=== PATIENT | female | born 1995 | race Caucasian/White ===

== ENCOUNTER 2018-11-11 01:33 | Emergency (ER) | payer MEDICAID ==
[2018-11-11] MEDS ORDERED: Ondansetron 4 MG/2 ML SDV IV ONE (01:49)
[2018-11-11] MEDS ORDERED: Ketorolac 30 MG/ML SDV IVPUSH ONE (01:50)
[2018-11-11] MEDS ORDERED: Sodium Chloride 0.9% 1,000 ML IV SCH (02:00)
[2018-11-11] MEDS ORDERED: HYDROmorphone 1 MG/ML Syringe IVPUSH ONE ×2 (02:22→02:43)
[2018-11-11 02:26] LABS: ANION GAP 13.6; CHLORIDE,CL 105 mmol/L (101-111); SODIUM,NA 136 mmol/L (135-145)
[2018-11-11] MEDS ORDERED: Iopamidol 612 MG/ML 75 ML Bottle IVPUSH ONE (03:26)
[2018-11-11] MEDS ORDERED: Metoclopramide 10 MG/2 ML SDV IVPUSH ONE (03:34)
--- NOTE | 2018-11-11 03:34 | EDM.PDOC ---
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 Hx endometriosis, exploratory lap 10/16/18. Concerned now spread to bowel severe pain past week with bowel movements. 2 today first "normal and 2nd hard. Had left over oxycodone from surgery took one at be, threw up after. Has only been able to eat limited food past month, rice and few vegies, tried couple bites of steak tonight and threw that up. Rates pain 10/10. No fever or chills. 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 Has IUD. Lower Abdomen Pain Score (Numeric/FACES): 10 - Related Data Allergies Allergy/AdvReac Type Severity Reaction Status Date / Time No Known Allergies Allergy Verified 11/11/18 02:30 Home Meds: Home Meds Levonorgestrel [Mirena] 1 each IY 11/11/18 [History] Magnesium 30 mg PO DAILY 11/11/18 [History] Zinc Gluconate [Zinc] 30 mg PO DAILY 11/11/18 [History] oxyCODONE HCl/Acetaminophen [Percocet 10-325 mg Tablet] 1 each PO Q6HR PRN 11/11 [History] Past Medical History Gastrointestinal History: Reports: Chronic Constipation, Other (See Below) Other Gastrointestinal History: hernia as infant Genitourinary History: Reports: UTI, Recurrent QUALITY COORDINATOR History: Reports: Endometriosis Musculoskeletal History: Reports: Neck Pain, Chronic Neurological History: Reports: Migraines Psychiatric History: Reports: Depression - Past Surgical History HEENT Surgical History: Reports: Myringotomy w Tube(s) GI Surgical History: Reports: Hernia Repair/Other Female Surgical History: Reports: Other (See Below) Other Female Surgeries/Procedures: surgery 10/16/[address] Hernandez to dx endometriosis Oncologic Surgical History: Reports: Other (See Below) Social & Family History - Family History Family Medical History: Noncontributory - Tobacco Use Smoking Status *Q: Never Smoker Second Hand Smoke Exposure: No - Caffeine Use Caffeine Use: Reports: Soda - Recreational Drug Use Recreational Drug Use: No - Sexual History Sexual History: Reports: Sexually Active - Living Situation & Occupation Living situation: Reports: with Family Occupation: Employed ED ROS GENERAL - Review of Systems Review Of Systems: ROS reveals no pertinent complaints other than HPI. ED EXAM, GI/ABD - Physical Exam Exam: See Below Exam Limited By: No Limitations General Appearance: Alert, Moderate Distress Eyes: Bilateral: EOMI Ears: Normal External Exam Nose: Normal Inspection Throat/Mouth: Normal Inspection Head: Atraumatic, Normocephalic Neck: Normal Inspection Respiratory/Chest: No Respiratory Distress, Lungs Clear, Normal Breath Sounds Cardiovascular: Normal Peripheral Pulses, Regular Rate, Rhythm GI/Abdominal Exam: Guarding, Tender (lower ). No: Distended Back Exam: Normal Inspection, Full Range of Motion Extremities: Normal Inspection, Normal Range of Motion Neurological: Alert, Oriented, CN II-XII Intact, Normal Cognition Psychiatric: Normal Affect, Normal Mood, Tearful Skin Exam: Warm, Dry, Intact, Normal Color Course - Vital Signs Last Recorded V/S: Last Vital Signs Temp 97.9 F 11/11/18 05:07 Pulse 75 11/11/18 05:07 Resp 17 11/11/18 05:07 BP 108/62 11/11/18 05:07 Pulse Ox 100 11/11/18 05:07 - Orders/Labs/Meds Orders: Active Orders 24 hr Category Date Time Status EKG Documentation Completion [RC] URGENT Care 11/11/18 06:05 Inactive Sodium Chloride 0.9% [Normal Saline] 1,000 ml Med 11/11/18 02:00 Active IV ASDIRECTED Medication Orders Sodium Chloride (Normal Saline) 1,000 mls @ 999 mls/hr IV ASDIRECTED HERON Last Admin: 11/11/18 01:54 Dose: 999 mls/hr Labs: Laboratory Tests 11/11/18 11/11/18 11/11/18 Range/Units 01:50 01:50 01:50 WBC 5.3 (5.0-10.0) 10^3/uL RBC 4.54 (4.2-5.4) 10^6/uL Hgb 13.8 (12.0-16.0) g/dL Hct 39.0 (37.0-47.0) % MCV 85.9 D (80-100) fL MCH 30.4 (27.0-34.0) pg MCHC 35.4 H (33.0-35.0) g/dL Plt Count 228 (150-450) 10^3/uL Neut % (Auto) 22.3 L (42.2-75.2) % Lymph % (Auto) 65.0 H (20.5-50.1) % [place] % (Auto) 10.4 H (2-8) % Eos % (Auto) 2.1 (1.0-3.0) % Baso % (Auto) 0.2 (0.0-1.0) % Sodium 136 (135-145) mmol/L Potassium 4.6 (3.6-5.0) mmol/L Chloride 105 (101-111) mmol/L Carbon Dioxide 22.0 (21.0-31.0) mmol/L Anion Gap 13.6 BUN 18 (7-18) mg/dL Creatinine 0.8 (0.6-1.3) mg/dL Est Cr Clr Drug Dosing TNP Estimated GFR (MDRD) > 60 BUN/Creatinine Ratio 22.50 Glucose 83 (74-105) mg/dL Lactic Acid 1.0 (0.5-2.2) mmol/L Calcium 9.0 (8.4-10.2) mg/dl Total Bilirubin 1.0 (0.2-1.0) mg/dL AST 28 (10-42) IU/L ALT 18 (10-60) IU/L Alkaline Phosphatase 46 (42-121) IU/L Troponin I (0.00-0.02) ng/ml Total Protein 7.7 (6.7-8.2) g/dl Albumin 4.4 (3.2-5.5) g/dl Globulin 3.3 Albumin/Globulin Ratio 1.33 Urine Color (YELLOW) Urine Appearance (CLEAR) Urine pH (5.0-9.0) Ur Specific [place] (1.005-1.030) Urine Protein (NEGATIVE) Urine Glucose (UA) (NEGATIVE) Urine Ketones (NEGATIVE) Urine Occult Blood (NEGATIVE) Urine Nitrite (NEGATIVE) Urine Bilirubin (NEGATIVE) Urine Urobilinogen (0.2-1.0) mg/dL Ur Leukocyte Esterase (NEGATIVE) Urine RBC /HPF Urine WBC (0-5/HPF) /HPF Ur Epithelial Cells (NOT SEEN) /HPF Amorphous Sediment (NOT SEEN) /HPF Urine Bacteria (0-FEW/HPF) /HPF Urine HCG, Qual 11/11/18 11/11/18 11/11/18 Range/Units 01:50 02:23 02:23 WBC (5.0-10.0) 10^3/uL RBC (4.2-5.4) 10^6/uL Hgb (12.0-16.0) g/dL Hct (37.0-47.0) % MCV (80-100) fL MCH (27.0-34.0) pg MCHC (33.0-35.0) g/dL Plt Count (150-450) 10^3/uL Neut % (Auto) (42.2-75.2) % Lymph % (Auto) (20.5-50.1) % [place] % (Auto) (2-8) % Eos % (Auto) (1.0-3.0) % Baso % (Auto) (0.0-1.0) % Sodium (135-145) mmol/L Potassium (3.6-5.0) mmol/L Chloride (101-111) mmol/L Carbon Dioxide (21.0-31.0) mmol/L Anion Gap BUN (7-18) mg/dL Creatinine (0.6-1.3) mg/dL Est Cr Clr Drug Dosing Estimated GFR (MDRD) BUN/Creatinine Ratio Glucose (74-105) mg/dL Lactic Acid (0.5-2.2) mmol/L Calcium (8.4-10.2) mg/dl Total Bilirubin (0.2-1.0) mg/dL AST (10-42) IU/L ALT (10-60) IU/L Alkaline Phosphatase (42-121) IU/L Troponin I < 0.02 (0.00-0.02) ng/ml Total Protein (6.7-8.2) g/dl Albumin (3.2-5.5) g/dl Globulin Albumin/Globulin Ratio Urine Color Yellow (YELLOW) Urine Appearance Cloudy (CLEAR) Urine pH 8.5 (5.0-9.0) Ur Specific [place] 1.015 (1.005-1.030) Urine Protein Negative (NEGATIVE) Urine Glucose (UA) Negative (NEGATIVE) Urine Ketones Negative (NEGATIVE) Urine Occult Blood Negative (NEGATIVE) Urine Nitrite Negative (NEGATIVE) Urine Bilirubin Negative (NEGATIVE) Urine Urobilinogen 0.2 (0.2-1.0) mg/dL Ur Leukocyte Esterase Trace H (NEGATIVE) Urine RBC Not seen /HPF Urine WBC 0-5 (0-5/HPF) /HPF Ur Epithelial Cells Moderate H (NOT SEEN) /HPF Amorphous Sediment Moderate H (NOT SEEN) /HPF Urine Bacteria Moderate H (0-FEW/HPF) /HPF Urine HCG, Qual Negative Meds: Medications Generic Name Dose Route Start Last Admin Trade Name Freq PRN Reason Stop Dose Admin Sodium Chloride 1,000 mls @ 999 mls/hr 11/11/18 02:00 11/11/18 01:54 Normal Saline IV 999 mls/hr ASDIRECTED HERON Administration Discontinued Medications Generic Name Dose Route Start Last Admin Trade Name Freq PRN Reason Stop Dose Admin Famotidine 20 mg 11/11/18 05:06 11/11/18 05:13 Pepcid IVPUSH 11/11/18 05:07 20 mg ONETIME ONE Administration Fentanyl 50 mcg 11/11/18 03:35 11/11/18 03:43 Sublimaze IVPUSH 11/11/18 03:36 50 mcg ONETIME ONE Administration Hydromorphone HCl 1 mg 11/11/18 02:22 11/11/18 02:27 Dilaudid IVPUSH 11/11/18 02:23 1 mg ONETIME ONE Administration Hydromorphone HCl 1 mg 11/11/18 02:43 11/11/18 02:52 Dilaudid IVPUSH 11/11/18 02:44 1 mg ONETIME ONE Administration Iopamidol 75 ml 11/11/18 03:26 11/11/18 04:08 Isovue-300 (61%) IVPUSH 11/11/18 03:27 75 ml ONETIME ONE Administration Ketorolac Tromethamine 30 mg 11/11/18 01:50 11/11/18 01:55 Toradol IVPUSH 11/11/18 01:51 30 mg ONETIME ONE Administration Metoclopramide HCl 10 mg 11/11/18 03:34 11/11/18 03:40 Reglan IVPUSH 11/11/18 03:35 10 mg ONETIME ONE Administration Ondansetron HCl 4 mg 11/11/18 01:49 11/11/18 01:55 Zofran IV 11/11/18 01:50 4 mg ONETIME ONE Administration - Radiology Interpretation Free Text/Narrative:: [facility] Final Radiology Report Call: [phone] assistance Online chat: [email or web address] Name: ELIZABETH BALLESTEROS Age: 23Years F Date: 11/11/2018 SSN: -- : [id number] Study: CT ABDOMEN/PELVIS W Requesting Physician: ANGELI CADENA Images: 1 Addl Studies: Provided Clinical History: Contrast: With Contrast Medium: Iso 300 Contrast Amount: 75 mL Contrast Method: R Hand 18g Page 1 of 2 EXAM: CT Abdomen and Pelvis With Contrast EXAM DATE/TIME: 11/11/2018 3:55 AM CLINICAL HISTORY: 23 years old, female; Abdominal pain and other: HX of endometriosis, HX of bladder and kidney infections; Prior surgery; Surgery date: <1 month; Surgery type: PT had recent bx done of uterus - TECHNIQUE: Imaging protocol: Axial computed tomography images of the abdomen and pelvis with intravenous contrast. Coronal and sagittal reformatted images were created and reviewed. Radiation optimization: All CT scans at this facility use at least one of these dose optimization techniques: automated exposure control; mA and/or kV adjustment per patient size (includes targeted exams where dose is matched to clinical indication); or iterative reconstruction. Contrast material: ISO 300; Contrast volume: 75 ml; Contrast route: R HAND 18G; COMPARISON: No relevant prior studies available. FINDINGS: ABDOMEN: Liver: No suspicious lesions. Gallbladder and bile ducts: No acute or concerning findings. Pancreas: Unremarkable. No ductal dilation. Spleen: No suspicious lesions. Adrenals: Unremarkalbe. No suspicious mass. ELIZABETH BALLESTEROS | Final Radiology Report CONFIDENTIALITY STATEMENT This report is intended only for use by the referring physician, and only in accordance with law. If you received this in error, call [phone]. Page 2 of 2 Kidneys and ureters: Unremarkable. No hydro. No suspicious lesions. Stomach and bowel: Unremarkable. No obstruction or inflammatory changes. Appendix: Normal appendix. PELVIS: Bladder: Unremarkable as visualized. Reproductive: 3.6 cm right adnexal cyst. 2.4 cm left adnexal cyst. IUD. ABDOMEN and PELVIS: Intraperitoneal space: No free air. No significant fluid collection. Bones/joints: No acute fracture. No dislocation. Soft tissues: Unremarkable. Vasculature: Unremarkable. No acute findings Lymph nodes: Unremarkable. IMPRESSION: Bilateral adnexal cysts. 6 week followup pelvic ultrasound suggested. Thank you for allowing us to participate in the care of your patient. Dictated and Authenticated by: Anuj Baumann MD 11/11/2018 5:27 AM Central Time ([place] & [place] Departure - Departure Time of Disposition: 05:35 Disposition: Home, Self-Care 01 Condition: Good Clinical Impression: Hx of endometriosis Abdominal pain Qualifiers: Abdominal location: lower abdomen, unspecified Qualified Code(s): R10.30 - Lower abdominal pain, unspecified Ovarian cyst Qualifiers: Laterality: bilateral Qualified Code(s): N83.201 - Unspecified ovarian cyst, right side - Discharge Information *PRESCRIPTION DRUG MONITORING PROGRAM REVIEWED*: No *COPY OF PRESCRIPTION DRUG MONITORING REPORT IN PATIENT ANIKET: No Instructions: Ovarian Cyst, [id number] Forms: ED Department Discharge Additional Instructions: Ibuprofen 600mg every 6 hours as needed for discomfort zofran 4mg ODT one every 6 hours as needed for nausea omeprozole 20mg one daily on empty stomach miralax one capful in 8 ounces liquid daily follow up with primary care this week - My Orders Last 24 Hours: My Active Orders 11/11/18 02:00 Sodium Chloride 0.9% [Normal Saline] 1,000 ml IV ASDIRECTED 11/11/18 06:05 EKG Documentation Completion [RC] URGENT - Assessment/Plan Last 24 Hours: My Active Orders 11/11/18 02:00 Sodium Chloride 0.9% [Normal Saline] 1,000 ml IV ASDIRECTED 11/11/18 06:05 EKG Documentation Completion [RC] URGENT
[2018-11-11] MEDS ORDERED: fentaNYL 100 MCG/2 ML SDV IVPUSH ONE (03:35)
[2018-11-11] MEDS ORDERED: Famotidine 20 MG/2 ML SDV IVPUSH ONE (05:06)
[2018-11-11 05:08] VITALS: BP 108/62
== END 2018-11-11 05:45 | disposition home or self-care (01) ==
LOC: DL.ED 01:33
DX: N83.201 Unspecified ovarian cyst, right side (principal); Z79.899 Other long term (current) drug therapy; Z87.42 Personal history of other diseases of the female genital tract
CPT/HCPCS: 36415; 74177; 80053; 81001; 81025; 83605; 84484; 85025; 96361; 96374; 96375; 99284-25; J1170; J1885; J2405; J2765; J3010; J3490; J7030; Q9967

== ENCOUNTER 2018-11-24 03:11 | Emergency (ER) | payer MEDICAID ==
[2018-11-24] MEDS ORDERED: Promethazine 25 MG/ML SDV IM ONE (03:47)
--- NOTE | 2018-11-24 03:47 | EDM.PDOC ---
ED HPI GENERAL MEDICAL PROBLEM - General Chief Complaint: Abdominal Pain Stated Complaint: in a lot of pain Time Seen by Provider: 11/24/18 03:35 Source of Information: Reports: Patient History Limitations: Reports: No Limitations - History of Present Illness INITIAL COMMENTS - FREE TEXT/NARRATIVE: This 23 yo female patient reports to the ED with increased lower abdominal pain , lower back pain and feeling like she needs to have a bowel movement. The patient was seen in the ED on 11/11/18 in the ED. During that visit, the patient received pain medications, nausea medications and an abdominal CT. The patient reports she has a follow-up appointment at the [facility] today, but could not deal with the pain this evening. The patient reports she has been previously diagnosed with endometriosis and now believes it may have spread to her bowels. The patient reports she has been alternating between diarrhea and constipation over the past weeks. The patient reports she has an appointment with a specialist in [place] on 12/11/18. The patient reports she did take her Oxycodone and Zofran with no symptom relief. Duration: Day(s):, Constant, Getting Worse Location: Reports: Abdomen Quality: Reports: Ache, Sharp, Stabbing Severity: Severe Improves with: Reports: None Worsens with: Reports: None Context: Reports: Other Associated Symptoms: Reports: Nausea/Vomiting Lower Abdomen Pain Score (Numeric/FACES): 9 Lower Back Pain Score (Numeric/FACES): 4 - Related Data Allergies Allergy/AdvReac Type Severity Reaction Status Date / Time No Known Allergies Allergy Verified 11/24/18 04:14 Home Meds: Home Meds Levonorgestrel [Mirena] 1 each IY 11/11/18 [History] Magnesium 30 mg PO DAILY 11/11/18 [History] Zinc Gluconate [Zinc] 30 mg PO DAILY 11/11/18 [History] oxyCODONE HCl/Acetaminophen [Percocet 10-325 mg Tablet] 1 each PO Q6HR PRN 11/11 [History] Past Medical History Gastrointestinal History: Reports: Chronic Constipation, Other (See Below) Other Gastrointestinal History: hernia as Genitourinary History: Reports: UTI, Recurrent 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 Musculoskeletal History: Reports: Neck Pain, Chronic Neurological History: Reports: Migraines Psychiatric History: Reports: Depression - Past Surgical History HEENT Surgical History: Reports: Myringotomy w Tube(s) GI Surgical History: Reports: Hernia Repair/Other Female Surgical History: Reports: Other (See Below) Other Female Surgeries/Procedures: surgery 10/16/[address] Hernandez to dx endometriosis Oncologic Surgical History: Reports: Other (See Below) Social & Family History - Family History Family Medical History: Noncontributory - Tobacco Use Smoking Status *Q: Never Smoker Second Hand Smoke Exposure: No - Caffeine Use Caffeine Use: Reports: Soda - Recreational Drug Use Recreational Drug Use: No - Sexual History Sexual History: Reports: Sexually Active - Living Situation & Occupation Living situation: Reports: with Family Occupation: Employed ED ROS GENERAL - Review of Systems Review Of Systems: ROS reveals no pertinent complaints other than HPI. ED EXAM, GI/ABD - Physical Exam Exam: See Below Exam Limited By: No Limitations General Appearance: Alert, WD/WN, Moderate Distress Eyes: Bilateral: EOMI, Erythema Ears: Normal External Exam, Normal Canal, Hearing Grossly Normal, Normal TMs Nose: Normal Inspection, Normal Mucosa, No Blood Throat/Mouth: Normal Inspection, Normal Lips, Normal Teeth, Normal Gums, Normal Oropharynx, Normal Voice, No Airway Compromise Head: Atraumatic, Normocephalic Neck: Normal Inspection, Supple, Non-Tender, Full Range of Motion Respiratory/Chest: No Respiratory Distress, Lungs Clear, Normal Breath Sounds, No Accessory Muscle Use, Chest Non-Tender Cardiovascular: Normal Peripheral Pulses, Regular Rate, Rhythm, No Edema, No Gallop, No JVD, No Murmur, No Rub GI/Abdominal Exam: Guarding (lower abdomen), Tender (Female) Exam: Deferred Rectal (Female) Exam: Deferred Back Exam: Normal Inspection, Full Range of Motion, NT Extremities: Normal Inspection, Normal Range of Motion, Non-Tender, Normal Capillary Refill, No Pedal Edema Neurological: Alert, Oriented, CN II-XII Intact, Normal Cognition, Normal Gait, Normal Reflexes, No Motor/Sensory Deficits Psychiatric: Depressed Mood, Flat Affect, Tearful Skin Exam: Warm, Dry, Intact, Normal Color, No Rash Lymphatic: No Adenopathy Course - Vital Signs Last Recorded V/S: Last Vital Signs Temp 36.3 C 11/24/18 03:24 Pulse 99 11/24/18 03:24 Resp 22 H 11/24/18 03:24 BP 107/42 L 07/02/19 03:24 Pulse Ox 96 11/24/18 03:24 - Orders/Labs/Meds Labs: Laboratory Tests 11/24/18 11/24/18 11/24/18 Range/Units 03:31 03:31 03:31 WBC (5.0-10.0) 10^3/uL RBC (4.2-5.4) 10^6/uL Hgb (12.0-16.0) g/dL Hct (37.0-47.0) % MCV (80-100) fL MCH (27.0-34.0) pg MCHC (33.0-35.0) g/dL Plt Count (150-450) 10^3/uL Neut % (Auto) (42.2-75.2) % Lymph % (Auto) (20.5-50.1) % [place] % (Auto) (2-8) % Eos % (Auto) (1.0-3.0) % Baso % (Auto) (0.0-1.0) % Add Manual Diff Neutrophils % (Manual) (42-75) % Lymphocytes % (Manual) (20-50) % Monocytes % (Manual) (2-8) % Eosinophils % (Manual) (1-3) % Basophils % (Manual) Sodium (135-145) mmol/L Potassium (3.6-5.0) mmol/L Chloride (101-111) mmol/L Carbon Dioxide (21.0-31.0) mmol/L Anion Gap BUN (7-18) mg/dL Creatinine (0.6-1.3) mg/dL Est Cr Clr Drug Dosing mL/min Estimated GFR (MDRD) BUN/Creatinine Ratio Glucose (74-105) mg/dL Calcium (8.4-10.2) mg/dl Total Bilirubin (0.2-1.0) mg/dL AST (10-42) IU/L ALT (10-60) IU/L Alkaline Phosphatase (42-121) IU/L Total Protein (6.7-8.2) g/dl Albumin (3.2-5.5) g/dl Globulin Albumin/Globulin Ratio Urine Color Yellow (YELLOW) Urine Appearance Slightly cloudy (CLEAR) Urine pH 7.0 (5.0-9.0) Ur Specific [place] 1.020 (1.005-1.030) Urine Protein Negative (NEGATIVE) Urine Glucose (UA) Negative (NEGATIVE) Urine Ketones Negative (NEGATIVE) Urine Occult Blood Negative (NEGATIVE) Urine Nitrite Negative (NEGATIVE) Urine Bilirubin Negative (NEGATIVE) Urine Urobilinogen 0.2 (0.2-1.0) mg/dL Ur Leukocyte Esterase Negative (NEGATIVE) Urine HCG, Qual Negative Urine Opiates Screen Negative (NEGATIVE) Ur Oxycodone Screen Positive H (NEGATIVE) Urine Methadone Screen Negative (NEGATIVE) Ur Barbiturates Screen Negative (NEGATIVE) U Tricyclic Antidepress Negative (NEGATIVE) Ur Phencyclidine Scrn Negative (NEGATIVE) Ur Amphetamine Screen Negative (NEGATIVE) U Methamphetamines Scrn Negative (NEGATIVE) Urine MDMA Screen Negative (NEGATIVE) U Benzodiazepines Scrn Negative (NEGATIVE) Urine Cocaine Screen Negative (NEGATIVE) U Marijuana (THC) Screen Positive H (NEGATIVE) 11/24/18 11/24/18 Range/Units 03:36 03:36 WBC 4.5 L (5.0-10.0) 10^3/uL RBC 4.51 (4.2-5.4) 10^6/uL Hgb 13.7 (12.0-16.0) g/dL Hct 39.0 (37.0-47.0) % MCV 86.5 (80-100) fL MCH 30.4 (27.0-34.0) pg MCHC 35.1 H (33.0-35.0) g/dL Plt Count 182 (150-450) 10^3/uL Neut % (Auto) 29.8 L (42.2-75.2) % Lymph % (Auto) 60.3 H (20.5-50.1) % [place] % (Auto) 8.2 H (2-8) % Eos % (Auto) 1.5 (1.0-3.0) % Baso % (Auto) 0.2 (0.0-1.0) % Add Manual Diff Yes Neutrophils % (Manual) 23 L (42-75) % Lymphocytes % (Manual) 61 H (20-50) % Monocytes % (Manual) 12 H (2-8) % Eosinophils % (Manual) 3 (1-3) % Basophils % (Manual) 1.0 Sodium 137 (135-145) mmol/L Potassium 3.7 (3.6-5.0) mmol/L Chloride 108 (101-111) mmol/L Carbon Dioxide 20.0 L (21.0-31.0) mmol/L Anion Gap 12.7 BUN 12 (7-18) mg/dL Creatinine 0.7 (0.6-1.3) mg/dL Est Cr Clr Drug Dosing 122.59 mL/min Estimated GFR (MDRD) > 60 BUN/Creatinine Ratio 17.14 Glucose 96 (74-105) mg/dL Calcium 9.1 (8.4-10.2) mg/dl Total Bilirubin 0.6 (0.2-1.0) mg/dL AST 21 (10-42) IU/L ALT 20 (10-60) IU/L Alkaline Phosphatase 40 L (42-121) IU/L Total Protein 7.1 (6.7-8.2) g/dl Albumin 4.2 (3.2-5.5) g/dl Globulin 2.9 Albumin/Globulin Ratio 1.45 Urine Color (YELLOW) Urine Appearance (CLEAR) Urine pH (5.0-9.0) Ur Specific [place] (1.005-1.030) Urine Protein (NEGATIVE) Urine Glucose (UA) (NEGATIVE) Urine Ketones (NEGATIVE) Urine Occult Blood (NEGATIVE) Urine Nitrite (NEGATIVE) Urine Bilirubin (NEGATIVE) Urine Urobilinogen (0.2-1.0) mg/dL Ur Leukocyte Esterase (NEGATIVE) Urine HCG, Qual Urine Opiates Screen (NEGATIVE) Ur Oxycodone Screen (NEGATIVE) Urine Methadone Screen (NEGATIVE) Ur Barbiturates Screen (NEGATIVE) U Tricyclic Antidepress (NEGATIVE) Ur Phencyclidine Scrn (NEGATIVE) Ur Amphetamine Screen (NEGATIVE) U Methamphetamines Scrn (NEGATIVE) Urine MDMA Screen (NEGATIVE) U Benzodiazepines Scrn (NEGATIVE) Urine Cocaine Screen (NEGATIVE) U Marijuana (THC) Screen (NEGATIVE) Meds: Medications Discontinued Medications Generic Name Dose Route Start Last Admin Trade Name Freq PRN Reason Stop Dose Admin Hydromorphone HCl 1 mg 11/24/18 04:35 Dilaudid IVPUSH 11/24/18 04:36 ONETIME ONE Ketorolac Tromethamine 30 mg 11/24/18 03:56 11/24/18 04:02 Toradol IVPUSH 11/24/18 03:57 30 mg ONETIME ONE Administration Promethazine HCl 25 mg 11/24/18 03:47 11/24/18 03:52 Phenergan IM 11/24/18 03:48 25 mg ONETIME ONE Administration Departure - Departure Time of Disposition: 04:36 Disposition: Home, Self-Care 01 Condition: Fair Clinical Impression: Hx of endometriosis Abdominal pain Qualifiers: Abdominal location: lower abdomen, unspecified Qualified Code(s): R10.30 - Lower abdominal pain, unspecified - Discharge Information *PRESCRIPTION DRUG MONITORING PROGRAM REVIEWED*: Yes *COPY OF PRESCRIPTION DRUG MONITORING REPORT IN PATIENT ANIKET: Yes Instructions: Abdominal Pain, Adult, [id number] Forms: ED Department Discharge Care Plan Goals: The patient was advised of the examination and lab results during the visit. The patient was given an injection of Phenergan, an IV dose of Toradol and an IV dose of Dilaudid while in the ED. The patient was encouraged to follow-up with her primary care facility today as previously planned and her specialist for continued management. If the patient has any additional symptoms or concerns , the patient should either return to the emergency department or visit her primary care facility.
[2018-11-24] MEDS ORDERED: Ketorolac 30 MG/ML SDV IVPUSH ONE (03:56)
[2018-11-24 04:03] LABS: ANION GAP 12.7; CHLORIDE,CL 108 mmol/L (101-111); SODIUM,NA 137 mmol/L (135-145)
[2018-11-24] MEDS ORDERED: HYDROmorphone 1 MG/ML Syringe IVPUSH ONE (04:35)
[2018-11-24 05:00] VITALS: BP 121/67
== END 2018-11-24 05:07 | disposition home or self-care (01) ==
LOC: DL.ED 03:11
DX: R10.30 Lower abdominal pain, unspecified (principal); M54.5 Low back pain; Z96.22 Myringotomy tube(s) status
CPT/HCPCS: 36415; 80053; 80305; 81003; 81025; 85025; 96372; 96374; 96375; 99284; J1170; J1885; J2550

== ENCOUNTER 2020-02-25 06:30 | Emergency (ER) | payer MEDICAID ==
[2020-02-25 06:48] VITALS: BP 114/65; PULSE 87
[2020-02-25] MEDS ORDERED: diphenhydrAMINE 50 MG/ML SDV IVPUSH ONE (07:02)
[2020-02-25] MEDS ORDERED: Metoclopramide 10 MG/2 ML SDV IVPUSH ONE (07:02)
[2020-02-25] MEDS ORDERED: Sodium Chloride 0.9% 1,000 ML IV ONE (07:02)
[2020-02-25] MEDS ORDERED: Sodium Chloride 0.9% 10 ML Syringe FLUSH PRN (07:02)
[2020-02-25 07:22] LABS: ANION GAP 12.6 mEq/L (7-13); CHLORIDE,CL 104 mmol/L (98-107); SODIUM,NA 138 mmol/L (136-145)
--- NOTE | 2020-02-25 07:45 | EDM.PDOC ---
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 Pt reports onset of frequent nausea since discovering that she was . For the past 5 to 6 days she reports frequent vomiting and has gotten to the point that she cannot keep down any food or water. Denies pain, contractions, vaginal bleeding, leak of fluids, or vaginal discharge. Denies fever, chills, diarrhea, or dysuria. Duration: Constant Location: Reports: Abdomen, Generalized Quality: Reports: Other (Denies pain) Severity: Severe Improves with: Reports: None Worsens with: Reports: Eating Associated Symptoms: Reports: No Other Symptoms Abdomen Pain Score (Numeric/FACES): 3 - Related Data Allergies Allergy/AdvReac Type Severity Reaction Status Date / Time No Known Allergies Allergy Verified 02/25/20 06:50 Home Meds: Home Meds Magnesium 30 mg PO DAILY 11/11/18 [History] Zinc Gluconate [Zinc] 30 mg PO DAILY 11/11/18 [History] levonorgestreL [Mirena] 1 each IY 11/11/18 [History] oxyCODONE HCl/Acetaminophen [Percocet 10-325 mg Tablet] 1 each PO Q6HR PRN 11/11/18 [History] Past Medical History Gastrointestinal History: Reports: Chronic Constipation, Other (See Below) Other Gastrointestinal History: hernia as Genitourinary History: Reports: UTI, Recurrent 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: Reports: Endometriosis : 1 Para: 0 LMP (Approximate): Musculoskeletal History: Reports: Neck Pain, Chronic Neurological History: Reports: Migraines Psychiatric History: Reports: Depression - Past Surgical History HEENT Surgical History: Reports: Myringotomy w Tube(s) GI Surgical History: Reports: Hernia Repair/Other Female Surgical History: Reports: Other (See Below) Other Female Surgeries/Procedures: surgery 10/16/[address] Hernandez to dx endometriosis Oncologic Surgical History: Reports: Other (See Below) Social & Family History - Family History Family Medical History: Noncontributory - Tobacco Use Smoking Status *Q: Never Smoker Second Hand Smoke Exposure: No - Caffeine Use Caffeine Use: Reports: Soda - Recreational Drug Use Recreational Drug Use: No - Sexual History Sexual History: Reports: Sexually Active - Living Situation & Occupation Living situation: Reports: with Family Occupation: Employed ED ROS GENERAL - Review of Systems Review Of Systems: Comprehensive ROS is negative, except as noted in HPI. ED EXAM - Physical Exam Exam: See Below Exam Limited By: No Limitations General Appearance: Alert, WD/WN, No Apparent Distress Eye Exam: Bilateral Eye: Normal Inspection (No scleral icterus) Nose: Normal Inspection, Normal Mucosa, No Blood Throat/Mouth: Normal Lips, Normal Teeth, Normal Gums, Normal Oropharynx, Normal Voice, No Airway Compromise, Other (Dry oral membranes) Head: Atraumatic, Normocephalic Neck: Normal Inspection, Supple, Non-Tender, Full Range of Motion Respiratory/Chest: No Respiratory Distress, Lungs Clear, Normal Breath Sounds, No Accessory Muscle Use, Chest Non-Tender Cardiovascular: Normal Peripheral Pulses, Regular Rate, Rhythm, No Edema, No Gallop, No JVD, No Murmur, No Rub GI/Abdominal Exam: Normal Bowel Sounds, Soft, Non-Tender, No Organomegaly, No Distention, No Abnormal Bruit, No Mass, Pelvis Stable Rectal Exam: Deferred (Female) Exam: Other (Deferred) Back Exam: Normal Inspection. No: CVA Tenderness (L), CVA Tenderness (R) Extremities: Normal Inspection, Normal Range of Motion, Non-Tender, Normal Capillary Refill, No Pedal Edema Neurological: Alert, Oriented, CN II-XII Intact, Normal Cognition, Normal Gait, No Motor/Sensory Deficits Psychiatric: Normal Affect, Normal Mood Skin Exam: Warm, Dry, Intact, Normal Color, No Rash Course - Vital Signs Last Recorded V/S: Last Vital Signs Temp 98 F 02/25/20 06:39 Pulse 87 02/25/20 06:39 Resp 19 02/25/20 06:39 BP 114/65 02/25/20 06:39 Pulse Ox 99 02/25/20 06:39 - Orders/Labs/Meds Orders: Active Orders 24 hr Category Date Time Status Peripheral IV Care [RC] . DIRECTED Care 02/25/20 07:02 Active CULTURE URINE [RM] Stat Lab 02/25/20 08:12 Received Sodium Chloride 0.9% [Saline Flush] Med 02/25/20 07:02 Active 10 ml FLUSH ASDIRECTED PRN Peripheral IV Insertion Adult [OM.PC] Stat Oth 02/25/20 07:02 Ordered Medication Orders Sodium Chloride (Saline Flush) 10 ml FLUSH ASDIRECTED PRN PRN Reason: Keep Vein Open Last Admin: 02/25/20 07:16 Dose: 10 ml Documented by: REED Labs: Laboratory Tests 02/25/20 02/25/20 02/25/20 Range/Units 06:32 06:32 08:12 WBC 6.4 (5.0-10.0) 10^3/uL RBC 4.23 (4.2-5.4) 10^6/uL Hgb 13.7 (12.0-16.0) g/dL Hct 38.9 (37.0-47.0) % MCV 92.0 D (80-100) fL MCH 32.4 (27.0-34.0) pg MCHC 35.2 H (33.0-35.0) g/dL Plt Count 160 (150-450) 10^3/uL Neut % (Auto) 79.6 H (42.2-75.2) % Lymph % (Auto) 10.4 L (20.5-50.1) % [place] % (Auto) 9.6 H (2-8) % Eos % (Auto) 0.2 L (1.0-3.0) % Baso % (Auto) 0.2 (0.0-1.0) % Sodium 138 (136-145) mmol/L Potassium 3.6 (3.5-5.1) mmol/L Chloride 104 (98-107) mmol/L Carbon Dioxide 25 (21-32) mmol/L Anion Gap 12.6 (7-13) mEq/L BUN 8 (7-18) mg/dL Creatinine 0.75 (0.55-1.02) mg/dL Est Cr Clr Drug Dosing 113.45 mL/min Estimated GFR (MDRD) > 60 BUN/Creatinine Ratio 10.7 (No establ ref range) Glucose 106 H (74-99) mg/dL Calcium 9.0 (8.5-10.1) mg/dL Total Bilirubin 0.8 (0.2-1.0) mg/dL AST 16 (15-37) U/L ALT 34 (14-59) U/L Alkaline Phosphatase 47 (46-116) U/L Total Protein 7.3 (6.4-8.2) g/dL Albumin 4.0 (3.4-5.0) g/dL Globulin 3.3 Albumin/Globulin Ratio 1.2 Urine Color (YELLOW) Urine Appearance (CLEAR) Urine pH (5.0-9.0) Ur Specific [place] (1.005-1.030) Urine Protein (NEGATIVE) Urine Glucose (UA) (NEGATIVE) Urine Ketones (NEGATIVE) Urine Occult Blood (NEGATIVE) Urine Nitrite (NEGATIVE) Urine Bilirubin (NEGATIVE) Urine Urobilinogen (0.2-1.0) mg/dL Ur Leukocyte Esterase (NEGATIVE) Urine RBC /HPF Urine WBC (0-5/HPF) /HPF Ur Epithelial Cells (NOT SEEN) /HPF Amorphous Sediment (NOT SEEN) /HPF Urine Bacteria (0-FEW/HPF) /HPF Urine Mucus (NOT SEEN) /LPF Urine HCG, Qual Positive 02/25/20 Range/Units 08:12 WBC (5.0-10.0) 10^3/uL RBC (4.2-5.4) 10^6/uL Hgb (12.0-16.0) g/dL Hct (37.0-47.0) % MCV (80-100) fL MCH (27.0-34.0) pg MCHC (33.0-35.0) g/dL Plt Count (150-450) 10^3/uL Neut % (Auto) (42.2-75.2) % Lymph % (Auto) (20.5-50.1) % [place] % (Auto) (2-8) % Eos % (Auto) (1.0-3.0) % Baso % (Auto) (0.0-1.0) % Sodium (136-145) mmol/L Potassium (3.5-5.1) mmol/L Chloride (98-107) mmol/L Carbon Dioxide (21-32) mmol/L Anion Gap (7-13) mEq/L BUN (7-18) mg/dL Creatinine (0.55-1.02) mg/dL Est Cr Clr Drug Dosing mL/min Estimated GFR (MDRD) BUN/Creatinine Ratio (No establ ref range) Glucose (74-99) mg/dL Calcium (8.5-10.1) mg/dL Total Bilirubin (0.2-1.0) mg/dL AST (15-37) U/L ALT (14-59) U/L Alkaline Phosphatase (46-116) U/L Total Protein (6.4-8.2) g/dL Albumin (3.4-5.0) g/dL Globulin Albumin/Globulin Ratio Urine Color Yellow (YELLOW) Urine Appearance Turbid (CLEAR) Urine pH 7.5 (5.0-9.0) Ur Specific [place] 1.025 (1.005-1.030) Urine Protein Trace H (NEGATIVE) Urine Glucose (UA) Negative (NEGATIVE) Urine Ketones 15 H (NEGATIVE) Urine Occult Blood Negative (NEGATIVE) Urine Nitrite Negative (NEGATIVE) Urine Bilirubin Negative (NEGATIVE) Urine Urobilinogen 0.2 (0.2-1.0) mg/dL Ur Leukocyte Esterase Trace H (NEGATIVE) Urine RBC 0-5 /HPF Urine WBC 0-5 (0-5/HPF) /HPF Ur Epithelial Cells Moderate H (NOT SEEN) /HPF Amorphous Sediment Many H (NOT SEEN) /HPF Urine Bacteria Few (0-FEW/HPF) /HPF Urine Mucus Rare (NOT SEEN) /LPF Urine HCG, Qual Meds: Medications Generic Name Dose Route Start Last Admin Trade Name [place] PRN Reason Stop Dose Admin Sodium Chloride 10 ml 02/25/20 07:02 02/25/20 07:16 Saline Flush FLUSH 10 ml ASDIRECTED PRN Administration Keep Vein Open Discontinued Medications Generic Name Dose Route Start Last Admin Trade Name Obinna PRN Reason Stop Dose Admin Diphenhydramine HCl 25 mg 02/25/20 07:02 02/25/20 07:15 Benadryl IVPUSH 02/25/20 07:03 25 mg ONETIME ONE Administration Sodium Chloride 1,000 mls @ 999 mls/hr 02/25/20 07:02 02/25/20 07:15 Normal Saline IV 02/25/20 08:02 999 mls/hr .BOLUS ONE Administration Metoclopramide HCl 10 mg 02/25/20 07:02 02/25/20 07:15 Reglan IVPUSH 02/25/20 07:03 10 mg ONETIME ONE Administration - Re-Assessments/Exams Free Text/Narrative Re-Assessment/Exam: 02/25/20 08:35 Pt reports feel much better following tx in ER and wishes to go home. Departure - Departure Time of Disposition: 08:36 Disposition: Home, Self-Care 01 Condition: Good Clinical Impression: Hyperemesis gravidarum - Discharge Information *PRESCRIPTION DRUG MONITORING PROGRAM REVIEWED*: Not Applicable *COPY OF PRESCRIPTION DRUG MONITORING REPORT IN PATIENT ANIKET: Not Applicable Instructions: Hyperemesis Gravidarum, Morning Sickness Forms: ED Department Discharge Additional Instructions: Rx: Reglan (Metoclopramide) 10mg Follow up in clinic if needed. Return to ER if worse at any time. Sepsis Event Note (ED) - Evaluation Sepsis Screening Result: No Definite Risk - Focused Exam Vital Signs: Vital Signs Temp Pulse Resp BP Pulse Ox 02/25/20 06:39 98 F 87 19 114/65 99 - My Orders Last 24 Hours: My Active Orders 02/25/20 07:02 Peripheral IV Care [RC] . DIRECTED Sodium Chloride 0.9% [Saline Flush] 10 ml FLUSH ASDIRECTED PRN Peripheral IV Insertion Adult [OM.PC] Stat 02/25/20 08:12 CULTURE URINE [RM] Stat - Assessment/Plan Last 24 Hours: My Active Orders 02/25/20 07:02 Peripheral IV Care [RC] . DIRECTED Sodium Chloride 0.9% [Saline Flush] 10 ml FLUSH ASDIRECTED PRN Peripheral IV Insertion Adult [OM.PC] Stat 02/25/20 08:12 CULTURE URINE [RM] Stat
== END 2020-02-25 08:38 | disposition home or self-care (01) ==
LOC: DL.ED 06:30
DX: O21.0 Mild hyperemesis gravidarum (principal); Z3A.08 8 weeks gestation of pregnancy
CPT/HCPCS: 36415; 80053; 81001; 81025; 85025; 87086; 96361; 96374; 96375; 99284; J1200; J2765; J7030; 99283

== ENCOUNTER 2020-02-29 15:31 | Emergency (ER) | payer MEDICAID ==
--- NOTE | 2020-02-29 16:00 | EDM.PDOC ---
ED HPI GENERAL MEDICAL PROBLEM - General Chief Complaint: General Stated Complaint: POSITIVE FOR COVID, 99*2 TEMP Time Seen by Provider: 02/29/20 16:00 Source of Information: Reports: Patient, Old Records, RN, RN Notes Reviewed History Limitations: Reports: No Limitations - History of Present Illness INITIAL COMMENTS - FREE TEXT/NARRATIVE: Pt presents with c/o intractable nausea and vomiting in early . G1, P0 at 8+ weeks gest. Pt reports onset of frequent nausea since discovering that she was . For the past 5 to 6 days she reports frequent vomiting and has g leisa to the point that she cannot keep down any food or water. Denies pain, contractions, vaginal bleeding, leak of fluids, or vaginal discharge. Denies diarrhea, or dysuria. Pt states she got a fever and tested positive for COVID on 02/27/20. Onset: Today Duration: Recurring Location: Reports: Generalized Severity: Severe Improves with: Reports: None Worsens with: Reports: Eating Context: Reports: Sick Contact Associated Symptoms: Reports: No Other Symptoms - Related Data Allergies Allergy/AdvReac Type Severity Reaction Status Date / Time No Known Allergies Allergy Verified 02/29/20 16:52 Home Meds: Home Meds . 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 Musculoskeletal History: Reports: Neck Pain, Chronic Neurological History: Reports: Migraines Psychiatric History: Reports: Depression - Past Surgical History HEENT Surgical History: Reports: Myringotomy w Tube(s) GI Surgical History: Reports: Hernia Repair/Other Female Surgical History: Reports: Other (See Below) Other Female Surgeries/Procedures: surgery 10/16/[address] Hernandez to dx endometriosis Oncologic Surgical History: Reports: Other (See Below) Social & Family History - Family History Family Medical History: Noncontributory - Caffeine Use Caffeine Use: Reports: Soda - Sexual History Sexual History: Reports: Sexually Active - Living Situation & Occupation Living situation: Reports: with Family Occupation: Employed ED ROS GENERAL - Review of Systems Review Of Systems: Comprehensive ROS is negative, except as noted in HPI. ED EXAM, GENERAL - Physical Exam Exam: See Below Exam Limited By: No Limitations General Appearance: Alert, No Apparent Distress, Other (Active emesis) Eye Exam: Bilateral Eye: Normal Inspection Throat/Mouth: Normal Voice, No Airway Compromise Head: Atraumatic, Normocephalic Neck: Normal Inspection Respiratory/Chest: No Respiratory Distress, Lungs Clear Cardiovascular: Regular Rate, Rhythm GI/Abdominal: Normal Bowel Sounds, Soft, Non-Tender. No: Guarding, Rigid, Rebound Back Exam: Normal Inspection Extremities: Normal Inspection Neurological: Alert, Oriented, No Motor/Sensory Deficits Psychiatric: Normal Mood Skin Exam: Warm, Dry, Intact, Normal Color, No Rash Course - Vital Signs Last Recorded V/S: Last Vital Signs Temp 98.4 F 02/29/20 16:06 Pulse 73 02/29/20 16:06 Resp 24 H 02/29/20 16:06 BP 119/69 02/29/20 16:06 Pulse Ox 100 02/29/20 16:06 - Orders/Labs/Meds Orders: Active Orders 24 hr Category Date Time Status Peripheral IV Care [RC] . DIRECTED Care 02/29/20 16:06 Active Sodium Chloride 0.9% [Normal Saline] 500 ml Med 02/29/20 16:15 Active IV .BOLUS Sodium Chloride 0.9% [Saline Flush] Med 02/29/20 16:06 Active 10 ml FLUSH ASDIRECTED PRN Peripheral IV Insertion Adult [OM.PC] Stat Oth 02/29/20 16:06 Ordered Medication Orders Sodium Chloride (Normal Saline) 500 mls @ 500 mls/hr IV .BOLUS HERON Last Admin: 02/29/20 16:20 Dose: 500 mls/hr Documented by: ANSON Sodium Chloride (Saline Flush) 10 ml FLUSH ASDIRECTED PRN PRN Reason: Keep Vein Open Last Admin: 02/29/20 16:20 Dose: 10 ml Documented by: ANSON Labs: Laboratory Tests 02/29/20 02/29/20 02/29/20 Range/Units 16:00 16:00 16:00 WBC 3.6 L (5.0-10.0) 10^3/uL RBC 4.68 (4.2-5.4) 10^6/uL Hgb 15.1 (12.0-16.0) g/dL Hct 42.3 (37.0-47.0) % MCV 90.4 (80-100) fL MCH 32.3 (27.0-34.0) pg MCHC 35.7 H (33.0-35.0) g/dL Plt Count 137 L (150-450) 10^3/uL Neut % (Auto) 60.9 (42.2-75.2) % Lymph % (Auto) 29.2 (20.5-50.1) % [place] % (Auto) 9.9 H (2-8) % Eos % (Auto) 0.0 L (1.0-3.0) % Baso % (Auto) 0.0 (0.0-1.0) % Sodium 138 (136-145) mmol/L Potassium 3.6 (3.5-5.1) mmol/L Chloride 101 (98-107) mmol/L Carbon Dioxide 25 (21-32) mmol/L Anion Gap 15.6 H (7-13) mEq/L BUN 8 (7-18) mg/dL Creatinine 0.71 (0.55-1.02) mg/dL Est Cr Clr Drug Dosing 119.84 mL/min Estimated GFR (MDRD) > 60 BUN/Creatinine Ratio 11.3 (No establ ref range) Glucose 76 (74-99) mg/dL Calcium 8.7 (8.5-10.1) mg/dL Total Bilirubin 0.4 (0.2-1.0) mg/dL AST 22 (15-37) U/L ALT 43 (14-59) U/L Alkaline Phosphatase 50 (46-116) U/L Total Protein 7.5 (6.4-8.2) g/dL Albumin 3.9 (3.4-5.0) g/dL Globulin 3.6 Albumin/Globulin Ratio 1.1 HCG, Quant 55134 H (0-6) mIU/mL Meds: Medications Generic Name Dose Route Start Last Admin Trade Name Freq PRN Reason Stop Dose Admin Sodium Chloride 500 mls @ 500 mls/hr 02/29/20 16:15 02/29/20 16:20 Normal Saline IV 500 mls/hr .BOLUS HERON Administration Sodium Chloride 10 ml 02/29/20 16:06 02/29/20 16:20 Saline Flush FLUSH 10 ml ASDIRECTED PRN Administration Keep Vein Open Discontinued Medications Generic Name Dose Route Start Last Admin Trade Name Freq PRN Reason Stop Dose Admin Diphenhydramine HCl 25 mg 02/29/20 16:07 02/29/20 16:20 Benadryl IVPUSH 02/29/20 16:08 25 mg ONETIME ONE Administration Metoclopramide HCl 10 mg 02/29/20 16:07 02/29/20 16:19 Reglan IVPUSH 02/29/20 16:08 10 mg ONETIME ONE Administration Departure - Departure Time of Disposition: 17:16 Disposition: Home, Self-Care 01 Condition: Good Clinical Impression: Hyperemesis gravidarum, COVID-19 - Discharge Information *PRESCRIPTION DRUG MONITORING PROGRAM REVIEWED*: Not Applicable *COPY OF PRESCRIPTION DRUG MONITORING REPORT IN PATIENT ANIKET: Not Applicable Instructions: Hyperemesis Gravidarum, and COVID-19 Forms: ED Department Discharge Additional Instructions: Follow up with Dr. Sierra as needed. Return to ER if worse at any time. Sepsis Event Note (ED) - Focused Exam Vital Signs: Vital Signs Temp Pulse Resp BP Pulse Ox 02/29/20 16:06 98.4 F 73 24 H 119/69 100 - My Orders Last 24 Hours: My Active Orders 02/29/20 16:06 Peripheral IV Care [RC] . DIRECTED Sodium Chloride 0.9% [Saline Flush] 10 ml FLUSH ASDIRECTED PRN Peripheral IV Insertion Adult [OM.PC] Stat 02/29/20 16:15 Sodium Chloride 0.9% [Normal Saline] 500 ml IV .BOLUS - Assessment/Plan Last 24 Hours: My Active Orders 02/29/20 16:06 Peripheral IV Care [RC] . DIRECTED Sodium Chloride 0.9% [Saline Flush] 10 ml FLUSH ASDIRECTED PRN Peripheral IV Insertion Adult [OM.PC] Stat 02/29/20 16:15 Sodium Chloride 0.9% [Normal Saline] 500 ml IV .BOLUS
[2020-02-29] MEDS ORDERED: Sodium Chloride 0.9% 10 ML Syringe FLUSH PRN (16:06)
[2020-02-29] MEDS ORDERED: diphenhydrAMINE 50 MG/ML SDV IVPUSH ONE (16:07)
[2020-02-29] MEDS ORDERED: Metoclopramide 10 MG/2 ML SDV IVPUSH ONE (16:07)
[2020-02-29 16:08] VITALS: BP 119/69; PULSE 73
[2020-02-29] MEDS ORDERED: Sodium Chloride 0.9% 500 ML IV SCH (16:15)
[2020-02-29 16:33] LABS: ANION GAP 15.6 mEq/L (7-13); CHLORIDE,CL 101 mmol/L (98-107); SODIUM,NA 138 mmol/L (136-145)
== END 2020-02-29 17:38 | disposition home or self-care (01) ==
LOC: DL.ED 15:31
DX: O98.511 Other viral diseases complicating pregnancy, first trimester (principal); U07.1 COVID-19; O21.0 Mild hyperemesis gravidarum; Z3A.08 8 weeks gestation of pregnancy
CPT/HCPCS: 36415; 80053; 84702; 85025; 96361; 96374; 96375; 99284; J1200; J2765; J7040; 99283

== ENCOUNTER 2023-07-21 12:56 | Emergency (ER) | payer BC, MEDICAID ==
[2023-07-21 13:28] VITALS: BP 129/85; PULSE 67
[2023-07-21 14:39] LABS: BASOPHILS PERCENT AUTO 0.2 % (0.0-1.0); EOSINOPHILS PERCENT AUTO 1.8 % (1.0-3.0); HEMATOCRIT 41.8 % (37.0-47.0); HEMOGLOBIN 14.3 g/dL (12.0-16.0); MEAN CORPUSCULAR HEMOGLOBIN 29.9 pg (27.0-34.0); MEAN CORPUSCULAR HGB CONC 34.2 g/dL (33.0-35.0); MEAN CORPUSCULAR VOLUME 87.4 fL (80-100); MONOCYTES PERCENT AUTO 6.8 % (2-8); NEUTROPHILS PERCENT AUTO 68.2 % (42.2-75.2); PLATELET COUNT,PLT 210 10^3/uL (150-450); RED BLOOD CELL COUNT 4.78 10^6/uL (4.2-5.4); WHITE BLOOD CELL COUNT,WBC 5.6 10^3/uL (5.0-10.0)
[2023-07-21 15:01] LABS: A/G RATIO 1.2; ALANINE AMINOTRANSFERASE,ALT 21 U/L (14-59); ALBUMIN 4.2 g/dL (3.4-5.0); ALKALINE PHOSPHATASE 52 U/L (46-116); ANION GAP 13.3 mEq/L (7-13); ASPARTATE AMNIOTRANSFERASE,AST 14 U/L (15-37); BILIRUBIN TOTAL 0.2 mg/dL (0.2-1.0); BLOOD UREA NITROGEN,BUN 15 mg/dL (7-18); BUN/CREATININE RATIO 18.8 (No establ ref range); CALCIUM 9.1 mg/dL (8.5-10.1); CARBON DIOXIDE,CO2 26 mmol/L (21-32); CHLORIDE,CL 104 mmol/L (98-107); EST CRCL DRUG DOSING (CG) 110.39 mL/min; GLUCOSE RANDOM 99 mg/dL (70-99); POTASSIUM,K 4.3 mmol/L (3.5-5.1); PROTEIN TOTAL,TP 7.8 g/dL (6.4-8.2); SODIUM,NA 139 mmol/L (136-145)
[2023-07-21 15:06] LABS: ESTIMATED GFR 104 mL/min (>=60)
[2023-07-21] MEDS: Lidocaine 1% 5 ML VIAL INJECT ONE (15:18)
== END 2023-07-21 15:40 | disposition home or self-care (01) ==
LOC: DL.ED 12:56
DX: S01.111A Laceration without foreign body of right eyelid and periocular area, initial encounter (principal); R55 Syncope and collapse; Z79.899 Other long term (current) drug therapy; W19.XXXA Unspecified fall, initial encounter
CPT/HCPCS: 12011; 36415; 80053; 82947; 84484; 85025; 85379; 93005; 99284; J3490